=== PATIENT | female | born 1965 | race Hispanic/Latino ===

== ENCOUNTER 2020-01-27 15:06 | Inpatient (IN) | payer OTHER ==
[~2020-01-27] VITALS: Ht 154.9 cm; Wt 65.8 kg
[2020-01-27 15:59] LABS: BASOPHILS % (AUTO) 0.3 % (0.0-5.0); EOSINOPHILS % (AUTO) 4.3 % (0.0-8.0); HEMATOCRIT 36.8 % (36-48); LYMPHOCYTES % (AUTO) 10.6 % (21.0-51.0); MEAN CORPUSCULAR HEMOGLOBIN 28.5 pg (27.0-33.0); MEAN CORPUSCULAR HGB CONC 32.1 g/dL (32.0-36.0); MEAN CORPUSCULAR VOLUME 88.9 fL (79-99); NEUTROPHILS % (AUTO) 79.3 % (40.0-77.0); PLATELET COUNT (AUTO) 549 K/uL (130-400); RED BLOOD CELL COUNT(AUTO) 4.14 MIL/uL (4.00-5.50); RED CELL DISTRIBUTION WIDTH 13.3 % (11.0-15.5); WHITE BLOOD COUNT (AUTO) 28.1 K/uL (4.8-10.8)
[2020-01-27] MEDS ORDERED: AZITHROMYCIN 250 MG TABLET PO ONE (16:17)
[2020-01-27] MEDS ORDERED: CEFTRIAXONE SODIUM 1 GM ONE (16:17)
[2020-01-27 16:22] LABS: INR 1.02 (0.85-1.15); PARTIAL THROMBOPLASTIN TIME 32.7 SEC (26.3-35.5)
[2020-01-27] MEDS ORDERED: IOHEXOL 350 MG/ML 100ML INFUS..BTL IV ONE (18:11)
[2020-01-27 20:15] LABS: ALANINE AMINOTRANSFERASE 13 U/L (12-78); ALBUMIN 2.9 g/dL (3.5-5.0); ASPARTATE AMINOTRANSFERASE 16 U/L (10-37); BILIRUBIN,TOTAL 0.3 mg/dL (0.2-1.0); CARBON DIOXIDE 26 mmol/L (21-32); CHLORIDE 96 mmol/L (101-111); CREATINE KINASE, TOTAL 25 U/L (21-232); CREATININE 0.6 mg/dL (0.5-1.5); GLOMERULAR FILTR. RATE CALC 110 mL/min (>60); GLUCOSE,RANDOM 165 mg/dL (70-105); MYOGLOBIN 19 ng/mL (10-92); POTASSIUM 3.3 mmol/L (3.5-5.1); SODIUM SERUM 135 mmol/L (136-145); TOTAL PROTEIN, SERUM 9.4 g/dL (6.0-8.3); TROPONIN I < 0.04 ng/mL (0.00-0.06); UREA NITROGEN, BLOOD 19 mg/dL (7-18)
[2020-01-27] MEDS ORDERED: LIDOCAINE HCL 2% VISCOUS 30 ML, MAG HYDROX/AL HYDROX/SIMETH 30 ML, BELLADONNA-PHENOBARB... PO PRN ×3 (20:15)
[2020-01-27] MEDS ORDERED: LACTULOSE 20 GM/30 ML UDCUP PO PRN (20:15)
[2020-01-27] MEDS: CEFEPIME HCL 2 GM VIAL IVP SCH (20:15)
[2020-01-27] MEDS ORDERED: MAG HYDROX/AL HYDROX/SIMETH ES 30 ML SUSP UDCUP PO PRN (20:15)
[2020-01-27] MEDS ORDERED: ERGOCALCIFEROL (VITAMIN D2) 50,000 UNIT CAPSULE PO ONE (20:15)
[2020-01-27] MEDS ORDERED: DiphenhydrAMINE HCL 50 MG/ML VIAL IV PRN (20:15)
[2020-01-27] MEDS ORDERED: ACETAMINOPHEN 325 MG TAB PO PRN ×2 (20:15)
[2020-01-27] MEDS ORDERED: HYDRALAZINE HCL 20 MG/ML VIAL IV PRN (20:15)
[2020-01-27] MEDS ORDERED: NITROGLYCERIN 0.4 MG SL TAB SL PRN (20:15)
[2020-01-27] MEDS ORDERED: ZOLPIDEM TARTRATE 5 MG TAB PO PRN (20:15)
[2020-01-27] MEDS ORDERED: DIPHENHYDRAMINE HCL 25 MG CAPSULE PO PRN (20:15)
[2020-01-27] MEDS ORDERED: VANCOMYCIN PROTOCOL PER PHARMACY IV PRN (20:15)
[2020-01-27] MEDS ORDERED: MAG HYDROX/AL HYDROX/SIMETH 30 ML, LIDOCAINE HCL 2% VISCOUS 30 ML, DIPHENHYDRAMINE HCL ... PO PRN ×3 (20:15)
[2020-01-27 20:38] LABS: APPEARANCE,URINE SL CLOUDY (CLEAR); BILIRUBIN,URINE MODERATE (NEGATIVE); COLOR,URINE YELLOW (YELLOW); GLUCOSE, URINE (UA) NEGATIVE (NEGATIVE); KETONES,URINE >=80 mg/dL (NEGATIVE); LEUKOCYTE ESTERASE ,URINE NEGATIVE (NEGATIVE); NITRATE,URINE NEGATIVE (NEGATIVE); OCCULT BLOOD,URINE NEGATIVE (NEGATIVE); PH,URINE 5.5 (5.0-8.0); PROTEIN,URINE 30 mg/dL (NEGATIVE)
[2020-01-27 20:40] LABS: BACTERIA,URINE Few /HPF (None Seen); MUCUS,URINE Moderate LPF (None Seen); RBC,URINE 0-1 /HPF (0-1); SQUAMOUS EPITHELIAL CELL,UR Few /HPF (0-2)
[2020-01-27] MEDS: FAMOTIDINE/PF 20 MG/2 ML VIAL IV SCH (21:00)
[2020-01-27] MEDS: VANCOMYCIN 1GM+NS 250ML 250 ML IV SCH (21:00)
[2020-01-27] MEDS ORDERED: DiphenhydrAMINE HCL 25 MG/10 ML ELIXIR UDCUP ONE (22:07)
[2020-01-27] MEDS ORDERED: MAG HYDROX/AL HYDROX/SIMETH ES 30 ML SUSP UDCUP ONE (22:07)
[2020-01-27] MEDS ORDERED: LIDOCAINE HCL 2% VISCOUS 15 ML UDCUP ONE (22:07)
[2020-01-27] MEDS ORDERED: FAMOTIDINE/PF 20 MG/2 ML VIAL IV ONE (22:08)
[2020-01-27] MEDS ORDERED: CEFEPIME HCL 2 GM VIAL ONE (22:08)
[2020-01-27] MEDS ORDERED: ERGOCALCIFEROL (VITAMIN D2) 50,000 UNIT CAPSULE ONE (23:50)
[2020-01-28 02:05] VITALS: BP 114/69
[2020-01-28] MEDS ORDERED: AEC81 PO (02:55)
[2020-01-28] MEDS ORDERED: METF500S7 PO (02:55)
[2020-01-28] MEDS ORDERED: AMLO25PO MC (02:55)
[2020-01-28 04:00] VITALS: BP 111/67
[2020-01-28 05:50] LABS: BASOPHILS % (AUTO) 0.4 % (0.0-5.0); EOSINOPHILS % (AUTO) 4.2 % (0.0-8.0); HEMATOCRIT 35.6 % (36-48); LYMPHOCYTES % (AUTO) 9.7 % (21.0-51.0); MEAN CORPUSCULAR HGB CONC 32.3 g/dL (32.0-36.0); MEAN CORPUSCULAR VOLUME 89.7 fL (79-99); MONOCYTES % (AUTO) 3.5 % (3.0-13.0); PLATELET COUNT (AUTO) 505 K/uL (130-400); RED BLOOD CELL COUNT(AUTO) 3.97 MIL/uL (4.00-5.50); RED CELL DISTRIBUTION WIDTH 13.3 % (11.0-15.5)
[2020-01-28] MEDS: IPRATROPIUM 0.5 MG/2.5 ML INH IH SCH ×3 (06:00→12:00)
[2020-01-28] MEDS: ALBUTEROL SULFATE 0.083% 2.5 MG/3 ML INH IH SCH ×3 (06:00→12:00)
[2020-01-28 06:02] LABS: ALBUMIN 2.7 g/dL (3.5-5.0); BILIRUBIN,TOTAL 0.2 mg/dL (0.2-1.0); CREATININE 0.5 mg/dL (0.5-1.5); MAGNESIUM 1.9 mg/dL (1.80-2.40); PHOSPHORUS 3.7 mg/dL (2.5-4.9); POTASSIUM 3.4 mmol/L (3.5-5.1); TOTAL PROTEIN, SERUM 8.8 g/dL (6.0-8.3)
[2020-01-28 06:08] LABS: PLATELET MORPHOLOGY PLT CLUMPS PRESENT
[2020-01-28 08:04] VITALS: BP 105/68
[2020-01-28] MEDS: ZINC SULFATE 220 CAPSULE PO SCH (09:07)
[2020-01-28] MEDS: BENZONATATE 100 MG CAPSULE PO PRN (09:08)
[2020-01-28] MEDS: FAMOTIDINE/PF 20 MG/2 ML VIAL IV SCH ×2 (09:08→21:00)
[2020-01-28] MEDS: ONDANSETRON HCL 4 MG/2 ML VIAL IV PRN (09:08)
[2020-01-28] MEDS: ASCORBIC ACID 500 MG TAB PO SCH (09:08)
[2020-01-28] MEDS: ENOXAPARIN SODIUM 40 MG/0.4 ML SYRINGE SQ SCH (09:09)
[2020-01-28] MEDS: GUAIFENESIN-DM 200/20 MG 10 ML PO PRN (09:09)
[2020-01-28] MEDS: CEFEPIME HCL 2 GM VIAL IVP SCH ×2 (09:10→20:58)
[2020-01-28] MEDS: METOPROLOL TARTRATE 25 MG TAB PO SCH ×2 (10:32→12:19)
[2020-01-28] MEDS: VANCOMYCIN 1GM+NS 250ML 250 ML IV SCH ×2 (10:33→20:59)
--- NOTE | 2020-01-28 11:15 | NUR ---
DYSPHAGIA EVAL COMPLETED. +S/S OF ASPIRATION. RECOMMEND NPO, LONG-TERM ALTERNATE MEANS OF NUTRITION/HYDRATION VS IV FLUIDS. DIET RECOMMENDATION IS CONTINGENT ON MASS BIOPSY AND COURSE OF TREATMENT. CANVAS SHOP LABORER WILL CONTINUE TO FOLLOW Pt. Addendum: 01/28/20 at 1408 by MARCIO MEDRANO, SPT ST Amended: Links added.
[2020-01-28 12:10] VITALS: BP 111/70
[2020-01-28] MEDS ORDERED: POTASSIUM CHLORIDE 20 MEQ/100 ML BAG IV SCH (14:45)
[2020-01-28] MEDS ORDERED: METOPROLOL TARTRATE 1 MG/ML 5ML VIAL IV PRN (14:45)
--- NOTE | 2020-01-28 14:49 | NUR ---
verified with dr. delgado if we need to proceed with the consult of dr. duvall the thoracic surgeon, he instructed to hold it for now.
--- NOTE | 2020-01-28 15:32 | NUR ---
DC PLAN CALLED PATIENT ROOM NO ANSWER. CALLED DAUGHTER ON FACE SHEET OTONIEL VANDANA. PATIENT INDEPENDENT ABLE TO PERFORM ADL'S. PATIENT HAS NO SERVICES OR DME'S. FEELS SAFE TO RETURN HOME. Addendum: 01/28/20 at 1533 by ERMIAS HAINES RN CM Amended: Links added.
[2020-01-28] MEDS ORDERED: SODIUM CHLORIDE 0.9% 1000ML 1,000 ML IV ONE (15:53)
[2020-01-28] MEDS ORDERED: LIDOCAINE HCL-MPF 1% 2ML VIAL IV SCH (16:00)
[2020-01-28] MEDS: SODIUM CHLORIDE 0.9% 1000ML 1,000 ML IV SCH (16:00)
[2020-01-28 16:41] VITALS: BP 110/70
[2020-01-28] MEDS: METOPROLOL TARTRATE 1 MG/ML 5ML VIAL IV SCH (18:25)
[2020-01-28] MEDS ORDERED: IOHEXOL-350 75 ML VIAL IV ONE (18:46)
[2020-01-28 19:00] VITALS: BP 106/76
[2020-01-28] MEDS: INSULIN HUMULIN R 100 UNIT/ML 3ML SQ SCH (21:00)
[2020-01-29] VITALS: BP 107/63
[2020-01-29] MEDS: METOPROLOL TARTRATE 1 MG/ML 5ML VIAL IV SCH ×5 (00:23→23:59)
[2020-01-29] MEDS: SODIUM CHLORIDE 0.9% 1000ML 1,000 ML IV SCH ×2 (02:00→22:00)
[2020-01-29 03:00] VITALS: BP 106/67
--- NOTE | 2020-01-29 03:00 | NUR ---
[facility] lab called to report that patient's PCR is negative, charge nurse Cindy marrero aware and no beds available at this time Addendum: 01/29/20 at 0622 by МАРИНА RIOS RN RN did not speakl to charge nurse, spoke to Senior Clinical Data Analyst, Magali
[2020-01-29 05:25] LABS: BASOPHILS % (AUTO) 0.3 % (0.0-5.0); EOSINOPHILS % (AUTO) 2.5 % (0.0-8.0); HEMATOCRIT 35.7 % (36-48); LYMPHOCYTES % (AUTO) 9.8 % (21.0-51.0); MEAN CORPUSCULAR HGB CONC 30.5 g/dL (32.0-36.0); MEAN CORPUSCULAR VOLUME 91.8 fL (79-99); MONOCYTES % (AUTO) 3.6 % (3.0-13.0); NEUTROPHILS % (AUTO) 82.6 % (40.0-77.0); PLATELET COUNT (AUTO) 480 K/uL (130-400); RED BLOOD CELL COUNT(AUTO) 3.89 MIL/uL (4.00-5.50); RED CELL DISTRIBUTION WIDTH 13.7 % (11.0-15.5)
[2020-01-29 05:44] LABS: ALBUMIN 2.3 g/dL (3.5-5.0); BILIRUBIN,TOTAL 0.3 mg/dL (0.2-1.0); CREATININE 0.5 mg/dL (0.5-1.5); PHOSPHORUS 2.6 mg/dL (2.5-4.9); POTASSIUM 3.7 mmol/L (3.5-5.1)
[2020-01-29 05:48] LABS: HEMOGLOBIN A1C 11.8 % (4.0-6.0)
[2020-01-29] MEDS: ALBUTEROL SULFATE 0.083% 2.5 MG/3 ML INH IH SCH ×3 (05:53→23:11)
[2020-01-29] MEDS: IPRATROPIUM 0.5 MG/2.5 ML INH IH SCH ×2 (05:53)
[2020-01-29 05:54] LABS: MAGNESIUM 1.7 mg/dL (1.80-2.40)
[2020-01-29] MEDS: INSULIN HUMULIN R 100 UNIT/ML 3ML SQ SCH ×4 (06:37→21:00)
[2020-01-29 08:00] VITALS: BP 107/70
[2020-01-29] MEDS: ENOXAPARIN SODIUM 40 MG/0.4 ML SYRINGE SQ SCH (08:29)
[2020-01-29] MEDS: ZINC SULFATE 220 CAPSULE PO SCH (08:29)
[2020-01-29] MEDS: ASCORBIC ACID 500 MG TAB PO SCH (08:29)
--- NOTE | 2020-01-29 09:00 | NUR ---
RESTING IN BED IN RIGHT SIDE-LYING POSITION, RESP.'S EVEN AND UNLABORED. PARTIAL NRB IN PLACE. STATES BREATHING BETTER TODAY. DENIES ANY CURRENT PAIN, DENIES ANY SOB. COMPLETE ASSESSMENT DONE. CALL LIGHT WITHIN REACH, VERBALIZED ABILITY TO USE. BED LOW, SIDE RAILS UP.
[2020-01-29] MEDS: CEFEPIME HCL 2 GM VIAL IVP SCH ×2 (09:04→21:10)
[2020-01-29] MEDS: VANCOMYCIN 1GM+NS 250ML 250 ML IV SCH (09:04)
[2020-01-29] MEDS: FAMOTIDINE/PF 20 MG/2 ML VIAL IV SCH ×2 (09:04→21:10)
--- NOTE | 2020-01-29 09:59 | NUR ---
TO CT SCAN VIA BED ACCOMPANIED BY MAXWELL, REMOTE SENSING ENGINEER; PARTIAL NRB MASK IN PLACE.
--- NOTE | 2020-01-29 10:03 | NUR ---
REPORT TO Hunter BEEBE RN.
[2020-01-29 12:07] VITALS: BP 143/64
--- NOTE | 2020-01-29 13:55 | NUR ---
FOLLOW UP COMPLETED. Pt CURRENTLY NPO. TOPOGRAPHIC COMPUTATOR WILL CONTINUE TO FOLLOW Pt PENDING RESULTS AND PLAN OF CARE FOR ESOPHAGEAL MASS. Addendum: 01/29/20 at 1406 by MARCIO MEDRANO, [facility] ST Amended: Links added.
[2020-01-29] MEDS ORDERED: ALBUTEROL INHALER 90MCG/INH IH SCH (14:00)
--- NOTE | 2020-01-29 15:23 | NUR ---
RE: EVALUATION FOR BIOPSY OF MASS OF LIVER, RETROPERITONEAL OR ESOPHAGEAL MASS DR NOAH HALL CALLED TO SPEAK WITH DR Fabian DAVISON REGARDING LEAST INVASIVE BIOPSY. DR Fabian DAVISON NOTIFIED OF REQUEST AND REVIEWED IMAGES. DR Fabian DAVISON RECOMMENDED GI CONSULT FOR ESOPHAGEAL BIOPSY. DR NOAH HALL STATED GI DECLINED BIOPSY DUE TO PATIENT'S HIGH AGUS OF INTUBATION FOR PROCEDURE. PROCEDURE RESCHEDULED FOR 02/02/20 FOR POSSIBLE ESOPHAGEAL MASS BX AND HOLD LOVENOX FOR 48HRS Snow YUSUF RN NOTIFIED OF PROCEDURE OUTCOME.
[2020-01-29 16:39] VITALS: BP 97/75
--- NOTE | 2020-01-29 18:15 | NUR ---
lopresser not given pt b/p sys below 100
[2020-01-29 20:16] VITALS: BP 112/66
[2020-01-29] MEDS ORDERED: COMPOUND IV REFRIGERATED 1 EACH IVSOLN MISC PRN (21:00)
[2020-01-29] MEDS: VANCOMYCIN 1.25 GM in SODIUM CHLORIDE 0.9% 250 ML IV SCH (23:02)
[2020-01-29] MEDS: ACETYLCYSTEINE 20% 200MG/ML 4ML VIAL IH SCH (23:11)
[2020-01-30 00:01] VITALS: BP 117/65
[2020-01-30 04:06] VITALS: BP 110/64
[2020-01-30 05:16] LABS: BASOPHILS % (AUTO) 0.3 % (0.0-5.0); EOSINOPHILS % (AUTO) 3.5 % (0.0-8.0); HEMATOCRIT 35.2 % (36-48); LYMPHOCYTES % (AUTO) 10.2 % (21.0-51.0); MEAN CORPUSCULAR HEMOGLOBIN 28.5 pg (27.0-33.0); MEAN CORPUSCULAR HGB CONC 30.4 g/dL (32.0-36.0); MEAN CORPUSCULAR VOLUME 93.6 fL (79-99); MONOCYTES % (AUTO) 3.7 % (3.0-13.0); NEUTROPHILS % (AUTO) 81.2 % (40.0-77.0); PLATELET COUNT (AUTO) 508 K/uL (130-400); RED BLOOD CELL COUNT(AUTO) 3.76 MIL/uL (4.00-5.50); RED CELL DISTRIBUTION WIDTH 13.7 % (11.0-15.5)
[2020-01-30 05:39] LABS: ALBUMIN 2.1 g/dL (3.5-5.0); BILIRUBIN,TOTAL 0.3 mg/dL (0.2-1.0); CREATININE 0.5 mg/dL (0.5-1.5); MAGNESIUM 1.6 mg/dL (1.80-2.40); PHOSPHORUS 2.6 mg/dL (2.5-4.9); POTASSIUM 3.6 mmol/L (3.5-5.1)
[2020-01-30 05:42] LABS: PLATELET MORPHOLOGY LARGE PLTS PRESENT
[2020-01-30] MEDS: ACETYLCYSTEINE 20% 200MG/ML 4ML VIAL IH SCH ×4 (06:08→21:48)
[2020-01-30] MEDS: ALBUTEROL SULFATE 0.083% 2.5 MG/3 ML INH IH SCH ×4 (06:08→21:47)
[2020-01-30] MEDS: METOPROLOL TARTRATE 1 MG/ML 5ML VIAL IV SCH ×4 (06:14→21:00)
[2020-01-30] MEDS: INSULIN HUMULIN R 100 UNIT/ML 3ML SQ SCH ×4 (06:22→20:58)
[2020-01-30 08:00] VITALS: BP 100/56
[2020-01-30] MEDS: VANCOMYCIN 1.25 GM in SODIUM CHLORIDE 0.9% 250 ML IV SCH ×2 (09:00→20:58)
[2020-01-30] MEDS: ZINC SULFATE 220 CAPSULE PO SCH (09:00)
[2020-01-30] MEDS: ASCORBIC ACID 500 MG TAB PO SCH (09:00)
[2020-01-30] MEDS: MORPHINE SULFATE 2 MG/ML 1ML SYG IVP PRN (10:34)
[2020-01-30] MEDS: ENOXAPARIN SODIUM 40 MG/0.4 ML SYRINGE SQ SCH (10:35)
[2020-01-30] MEDS: CEFEPIME HCL 2 GM VIAL IVP SCH ×2 (10:35→20:56)
[2020-01-30] MEDS: FAMOTIDINE/PF 20 MG/2 ML VIAL IV SCH ×2 (10:35→20:58)
[2020-01-30 11:34] VITALS: BP 140/52
[2020-01-30 16:00] VITALS: BP 110/63
[2020-01-30] MEDS: SODIUM CHLORIDE 0.9% 1000ML 1,000 ML IV SCH ×2 (18:36→19:37)
[2020-01-30 19:30] VITALS: BP 109/71
[2020-01-31 00:17] VITALS: BP 104/61
[2020-01-31] MEDS: SODIUM CHLORIDE 0.9% 1000ML 1,000 ML IV SCH ×2 (03:16→19:03)
[2020-01-31] MEDS: METOPROLOL TARTRATE 1 MG/ML 5ML VIAL IV SCH ×4 (04:59→23:54)
[2020-01-31] MEDS: INSULIN HUMULIN R 100 UNIT/ML 3ML SQ SCH ×4 (06:07→20:33)
[2020-01-31 06:19] VITALS: BP 114/69
[2020-01-31] MEDS: ACETYLCYSTEINE 20% 200MG/ML 4ML VIAL IH SCH ×3 (06:30→21:17)
[2020-01-31] MEDS: ZINC SULFATE 220 CAPSULE PO SCH (08:28)
[2020-01-31] MEDS: ENOXAPARIN SODIUM 40 MG/0.4 ML SYRINGE SQ SCH ×2 (08:28→09:00)
[2020-01-31] MEDS: FAMOTIDINE/PF 20 MG/2 ML VIAL IV SCH ×2 (08:28→21:17)
[2020-01-31] MEDS: VANCOMYCIN 1.25 GM in SODIUM CHLORIDE 0.9% 250 ML IV SCH ×2 (08:28→21:17)
[2020-01-31] MEDS: CEFEPIME HCL 2 GM VIAL IVP SCH ×2 (08:28→21:17)
[2020-01-31] MEDS: ASCORBIC ACID 500 MG TAB PO SCH (08:28)
[2020-01-31 10:19] LABS: BASOPHILS % (AUTO) 0.3 % (0.0-5.0); EOSINOPHILS % (AUTO) 3.5 % (0.0-8.0); HEMATOCRIT 33.4 % (36-48); LYMPHOCYTES % (AUTO) 7.5 % (21.0-51.0); MEAN CORPUSCULAR HEMOGLOBIN 28.9 pg (27.0-33.0); MEAN CORPUSCULAR HGB CONC 31.7 g/dL (32.0-36.0); MONOCYTES % (AUTO) 3.3 % (3.0-13.0); NEUTROPHILS % (AUTO) 84.5 % (40.0-77.0); PLATELET COUNT (AUTO) 463 K/uL (130-400); RED BLOOD CELL COUNT(AUTO) 3.67 MIL/uL (4.00-5.50); RED CELL DISTRIBUTION WIDTH 13.4 % (11.0-15.5); WHITE BLOOD COUNT (AUTO) 23.6 K/uL (4.8-10.8)
[2020-01-31 10:35] LABS: ALBUMIN 2.2 g/dL (3.5-5.0); ASPARTATE AMINOTRANSFERASE 15 U/L (10-37); BILIRUBIN,TOTAL 0.4 mg/dL (0.2-1.0); CARBON DIOXIDE 25 mmol/L (21-32); CHLORIDE 102 mmol/L (101-111); CREATININE 0.5 mg/dL (0.5-1.5); GLOMERULAR FILTR. RATE CALC 136 mL/min (>60); GLUCOSE,RANDOM 134 mg/dL (70-105); SODIUM SERUM 137 mmol/L (136-145); TOTAL PROTEIN, SERUM 7.7 g/dL (6.0-8.3); UREA NITROGEN, BLOOD 5 mg/dL (7-18)
[2020-01-31 10:36] LABS: ALANINE AMINOTRANSFERASE < 6 U/L (12-78)
[2020-01-31 11:46] VITALS: BP 125/76
[2020-01-31] MEDS: ALBUTEROL SULFATE 0.083% 2.5 MG/3 ML INH IH SCH ×2 (14:22→21:27)
[2020-01-31] MEDS: POTASSIUM CHLORIDE 20 MEQ ERTAB PO PRN ×2 (15:29→15:30)
[2020-01-31 16:00] VITALS: BP 113/67
[2020-01-31 20:28] VITALS: BP 105/64
[2020-01-31 23:36] VITALS: BP 107/61
[2020-02-01 04:24] VITALS: BP 93/57
[2020-02-01] MEDS: METOPROLOL TARTRATE 1 MG/ML 5ML VIAL IV SCH ×3 (04:31→17:49)
[2020-02-01 05:17] LABS: BASOPHILS % (AUTO) 0.3 % (0.0-5.0); EOSINOPHILS % (AUTO) 3.3 % (0.0-8.0); HEMATOCRIT 35.1 % (36-48); LYMPHOCYTES % (AUTO) 10.1 % (21.0-51.0); MEAN CORPUSCULAR HEMOGLOBIN 28.7 pg (27.0-33.0); MEAN CORPUSCULAR HGB CONC 31.6 g/dL (32.0-36.0); MEAN CORPUSCULAR VOLUME 90.7 fL (79-99); NEUTROPHILS % (AUTO) 81.4 % (40.0-77.0); PLATELET COUNT (AUTO) 511 K/uL (130-400); RED BLOOD CELL COUNT(AUTO) 3.87 MIL/uL (4.00-5.50); RED CELL DISTRIBUTION WIDTH 13.7 % (11.0-15.5); WHITE BLOOD COUNT (AUTO) 24.5 K/uL (4.8-10.8)
[2020-02-01 05:36] LABS: ALBUMIN 2.2 g/dL (3.5-5.0); BILIRUBIN,TOTAL 0.3 mg/dL (0.2-1.0); CREATININE 0.5 mg/dL (0.5-1.5); TOTAL PROTEIN, SERUM 8.2 g/dL (6.0-8.3)
[2020-02-01 05:56] LABS: POTASSIUM 2.9 mmol/L (3.5-5.1)
[2020-02-01] MEDS: ALBUTEROL SULFATE 0.083% 2.5 MG/3 ML INH IH SCH ×3 (06:26→22:11)
[2020-02-01] MEDS: ACETYLCYSTEINE 20% 200MG/ML 4ML VIAL IH SCH ×3 (06:27→22:12)
[2020-02-01] MEDS: INSULIN HUMULIN R 100 UNIT/ML 3ML SQ SCH ×4 (06:34→20:52)
[2020-02-01] MEDS: ENOXAPARIN SODIUM 40 MG/0.4 ML SYRINGE SQ SCH (09:00)
[2020-02-01] MEDS: CEFEPIME HCL 2 GM VIAL IVP SCH ×2 (09:15→20:51)
[2020-02-01] MEDS: ZINC SULFATE 220 CAPSULE PO SCH (09:16)
[2020-02-01] MEDS: POTASSIUM CHLORIDE 20 MEQ ERTAB PO PRN ×2 (09:16→21:30)
[2020-02-01] MEDS: ASCORBIC ACID 500 MG TAB PO SCH (09:16)
[2020-02-01] MEDS: FAMOTIDINE/PF 20 MG/2 ML VIAL IV SCH ×2 (09:16→20:51)
[2020-02-01 13:37] VITALS: BP 105/59
[2020-02-01] MEDS: VANCOMYCIN 1.25 GM in SODIUM CHLORIDE 0.9% 250 ML IV SCH ×2 (15:06→20:51)
[2020-02-01] MEDS: SODIUM CHLORIDE 0.9% 1000ML 1,000 ML IV SCH (15:07)
[2020-02-01 18:10] VITALS: BP 100/67
[2020-02-01 19:43] VITALS: BP 102/70
[2020-02-01 23:49] VITALS: BP 102/58
[2020-02-02] VITALS (7 sets, daily range): BP systolic 84–144; BP diastolic 54–72
[2020-02-02] MEDS: METOPROLOL TARTRATE 1 MG/ML 5ML VIAL IV SCH ×5 (00:22→23:30)
[2020-02-02] MEDS: POTASSIUM CHLORIDE 20 MEQ ERTAB PO PRN (03:48)
[2020-02-02 06:03] LABS: BASOPHILS % (AUTO) 0.4 % (0.0-5.0); EOSINOPHILS % (AUTO) 4.8 % (0.0-8.0); HEMATOCRIT 35.3 % (36-48); LYMPHOCYTES % (AUTO) 9.3 % (21.0-51.0); MEAN CORPUSCULAR HEMOGLOBIN 28.5 pg (27.0-33.0); MEAN CORPUSCULAR HGB CONC 31.2 g/dL (32.0-36.0); MEAN CORPUSCULAR VOLUME 91.5 fL (79-99); MONOCYTES % (AUTO) 3.6 % (3.0-13.0); NEUTROPHILS % (AUTO) 80.8 % (40.0-77.0); PLATELET COUNT (AUTO) 541 K/uL (130-400); RED BLOOD CELL COUNT(AUTO) 3.86 MIL/uL (4.00-5.50); RED CELL DISTRIBUTION WIDTH 14.1 % (11.0-15.5); WHITE BLOOD COUNT (AUTO) 25.2 K/uL (4.8-10.8)
[2020-02-02] MEDS: ALBUTEROL SULFATE 0.083% 2.5 MG/3 ML INH IH SCH ×3 (06:13→22:18)
[2020-02-02] MEDS: ACETYLCYSTEINE 20% 200MG/ML 4ML VIAL IH SCH ×3 (06:13→22:18)
[2020-02-02] MEDS: INSULIN HUMULIN R 100 UNIT/ML 3ML SQ SCH ×4 (06:35→21:00)
[2020-02-02 06:39] LABS: ALBUMIN 2.2 g/dL (3.5-5.0); BILIRUBIN,TOTAL 0.2 mg/dL (0.2-1.0); CREATININE 0.7 mg/dL (0.5-1.5); POTASSIUM 3.4 mmol/L (3.5-5.1); TOTAL PROTEIN, SERUM 8.1 g/dL (6.0-8.3)
[2020-02-02] MEDS: CEFEPIME HCL 2 GM VIAL IVP SCH ×2 (07:26→21:00)
[2020-02-02] MEDS: FAMOTIDINE/PF 20 MG/2 ML VIAL IV SCH ×2 (07:26→21:00)
--- NOTE | 2020-02-02 08:00 | NUR ---
ASSESSMENT PT IS AAOX3 DENIES CP DENIES SOB DENIES NV NO COMPLAINTS AT THIS TIME, RESTING IN BED. CALL LIGHT WITHIN REACH. NPO STATUS FOR LIVER BIOPSY.
[2020-02-02] MEDS: ASCORBIC ACID 500 MG TAB PO SCH (09:00)
[2020-02-02] MEDS: ENOXAPARIN SODIUM 40 MG/0.4 ML SYRINGE SQ SCH (09:00)
[2020-02-02] MEDS: ZINC SULFATE 220 CAPSULE PO SCH (09:00)
[2020-02-02] MEDS: VANCOMYCIN 1.25 GM in SODIUM CHLORIDE 0.9% 250 ML IV SCH ×2 (09:29→21:03)
--- NOTE | 2020-02-02 10:17 | NUR ---
MD BHARTI PEDRAZA AND Christo CROWELL, ORDERS RECEIVED. Addendum: 02/02/20 at 1018 by QUENTIN ZAMUDIO RN RN THIS NOTE ENTERED IN ERROR
[2020-02-02] MEDS: SODIUM CHLORIDE 0.9% 1000ML 1,000 ML IV SCH (10:41)
--- NOTE | 2020-02-02 16:00 | NUR ---
RE: LIVER BIOPSY PATIENT SCHEDULED FOR LIVER LESION BIOPSY. U/S OF LIVER DONE AND IMAGES REVIEWED BY DR Valdez GARCIA. 2.4CM CYST SEEN WITH NO LESION TO BIOPSY. PROCEDURE CANCELLED. PROCEDURE OUTCOME REPORTED TO Christine ZAMUDIO RN AND PATIENT TRANSPORTED TO [facility] VIA BED.
[2020-02-03 03:09] VITALS: BP 104/64
[2020-02-03] MEDS: METOPROLOL TARTRATE 1 MG/ML 5ML VIAL IV SCH ×3 (05:30→23:30)
[2020-02-03 06:25] LABS: BASOPHILS % (AUTO) 0.3 % (0.0-5.0); HEMATOCRIT 30.9 % (36-48); LYMPHOCYTES % (AUTO) 8.8 % (21.0-51.0); MEAN CORPUSCULAR HEMOGLOBIN 28.9 pg (27.0-33.0); MEAN CORPUSCULAR HGB CONC 31.4 g/dL (32.0-36.0); MONOCYTES % (AUTO) 4.5 % (3.0-13.0); NEUTROPHILS % (AUTO) 80.2 % (40.0-77.0); PLATELET COUNT (AUTO) 455 K/uL (130-400); RED BLOOD CELL COUNT(AUTO) 3.36 MIL/uL (4.00-5.50); RED CELL DISTRIBUTION WIDTH 14.1 % (11.0-15.5); WHITE BLOOD COUNT (AUTO) 24.2 K/uL (4.8-10.8)
[2020-02-03] MEDS: ALBUTEROL SULFATE 0.083% 2.5 MG/3 ML INH IH SCH ×3 (06:37→22:11)
[2020-02-03] MEDS: ACETYLCYSTEINE 20% 200MG/ML 4ML VIAL IH SCH ×3 (06:38→22:11)
[2020-02-03 06:45] LABS: ALBUMIN 2.1 g/dL (3.5-5.0); BILIRUBIN,TOTAL 0.3 mg/dL (0.2-1.0); CREATININE 0.5 mg/dL (0.5-1.5); TOTAL PROTEIN, SERUM 7.1 g/dL (6.0-8.3)
[2020-02-03] MEDS: INSULIN HUMULIN R 100 UNIT/ML 3ML SQ SCH ×4 (07:23→21:00)
[2020-02-03 08:43] VITALS: BP 106/71
[2020-02-03] MEDS: ENOXAPARIN SODIUM 40 MG/0.4 ML SYRINGE SQ SCH (09:00)
[2020-02-03] MEDS: ASCORBIC ACID 500 MG TAB PO SCH (09:00)
[2020-02-03] MEDS: ZINC SULFATE 220 CAPSULE PO SCH (09:00)
[2020-02-03] MEDS: FAMOTIDINE/PF 20 MG/2 ML VIAL IV SCH ×2 (10:50→21:00)
[2020-02-03] MEDS: CEFEPIME HCL 2 GM VIAL IVP SCH (10:50)
[2020-02-03] MEDS: SODIUM CHLORIDE 0.9% 1000ML 1,000 ML IV SCH ×2 (11:09→11:18)
[2020-02-03] MEDS: POTASSIUM CHLORIDE 10% ELIXIR 20 MEQ/15 ML UDCUP PO SCH ×2 (11:09→13:27)
[2020-02-03] MEDS ORDERED: PHARMACY COMMUNICATION MISC SCH (11:15)
--- NOTE | 2020-02-03 11:30 | NUR ---
PT IN NAD THIS AM. LEFT FA IV REMOVED DUE TO REDNESS AND TENDERNESS IN AREA. PT C.O PAIN, VANCO PREVIOUSLY INFUSED AT THIS SITE. WILL COMMUNICATE FOR EXTRAVASATION PROTOCOL??
--- NOTE | 2020-02-03 12:00 | NUR ---
FOLLOW UP COMPLETED. PLEASE CONSIDER MBSS AT THIS TIME. Pt UPGRADED TO CLEAR LIQUID DIET AT THIS TIME. THERAPEUTIC TRIALS OF THIN LIQUIDS PROVIDED WITH OBVIOUS +S/S OF ASPIRATION WITH THIN LIQUIDS. PLEASE CONSIDER MBSS AT THIS TIME OR S/P INTERVENTION TO NECK MASS. TREER WILL CONTINUE TO FOLLOW Pt. TREER COORDINATED WITH NURSE RONQUILLO. Addendum: 02/03/20 at 1325 by MARCIO MEDRANO [facility] ST Amended: Links added.
[2020-02-03 12:20] VITALS: BP 136/73
[2020-02-03] MEDS ORDERED: COMPOUND IV REFRIGERATED 1 EACH IVSOLN MISC PRN (12:45)
[2020-02-03] MEDS ORDERED: LIDOCAINE HCL-MPF 1% 2ML VIAL IJ PRN (14:30)
[2020-02-03] MEDS ORDERED: POTASSIUM CHLORIDE 10% ELIXIR 20 MEQ/15 ML UDCUP PO PRN (14:30)
[2020-02-03] MEDS ORDERED: POTASSIUM CHLORIDE 20MEQ/100ML 100 ML IV PRN (14:30)
[2020-02-03] MEDS ORDERED: POTASSIUM CHLORIDE 20 MEQ ERTAB PO PRN (14:30)
[2020-02-03] MEDS: ZOSYN 3.375GM+NS 50ML 50 ML IV SCH ×2 (15:08→23:45)
--- NOTE | 2020-02-03 15:10 | NUR ---
SPOKE WITH RADIOLOGY. FOR THE SMALL BOWEL OBSTRUCTION SERIES, THEY ARE GO GIVE HALF A DOSE OF CONTRAST FOR POSSIBLE ASPIRATION
[2020-02-03 16:53] VITALS: BP 104/65
--- NOTE | 2020-02-03 17:12 | NUR ---
RD NOTIFICATION - POSSIBLE TPN Pt admitted with Obstructive PNA w/Esophageal Mass. Pt with +S/S aspiration. Possible TPN pending GI evaluation. Pt with Nausea/Vomiting X2 mos. Significant weight loss of 37 pounds. Monitored labs: K 3.0, BUN 4, BG 128, Alb 2.1, WBC 24.1. Recommend initiate TPN at low rate 60mls/hr. d/t risk of refeeding syndrome. Goal rate of 75mls/hr. Also recommend potassium supplementation. RD to continue to monitor. Please notify as additional nutrition concerns arise. Thank you. Addendum: 02/03/20 at [address] ADDENDUM RECOMMENDATIONS FAXED TO ([id number]) RN NOTIFIED.
[2020-02-03] MEDS: ONDANSETRON HCL 4 MG/2 ML VIAL IV PRN (18:43)
[2020-02-03] MEDS: MORPHINE SULFATE 2 MG/ML 1ML SYG IVP PRN (18:43)
[2020-02-03 20:00] VITALS: BP 95/56
[2020-02-03] MEDS ORDERED: ACETAMINOPHEN ELIXIR 650 MG/20.3 ML UDCUP ONE (20:45)
[2020-02-03] MEDS: GUAIFENESIN-DM 200/20 MG 10 ML PO PRN (20:45)
[2020-02-03] MEDS ORDERED: ACETAMINOPHEN ELIXIR 160 MG/5ML UDCUP PO PRN (20:45)
[2020-02-03 23:09] VITALS: BP 82/51
[2020-02-04] VITALS (25 sets, daily range): BP systolic 83–152; BP diastolic 55–94
--- NOTE | 2020-02-04 00:15 | NUR ---
HYPOTENSION. PATIENT WITH CONTINUED EPISODES OF HYPOTENSION. ON-CALL JANNET Obando NP CONTACTED INFORMED OF TODAY'S BP FINDINGS. ORDERS GIVEN TO 1) GIVE 500 ML BOLUS OF NORMAL SALINE X1 NOW. ORDERS READ BACK TO JANNET Obando NP AND TRANSCRIBED. PATIENT CURRENTLY IN BED IN STABLE CONDITION, EASILY AROUSED, ABLE TO MAKE NEEDS KNOWN. NO C/O PAIN OR DISCOMFORT AT THIS TIME. CALL DEVICE WITHIN REACH WILL CONT. TO MONITOR.
[2020-02-04] MEDS ORDERED: SODIUM CHLORIDE 0.9% 500ML 500 ML IV ONE (00:30)
[2020-02-04] MEDS: SODIUM CHLORIDE 0.9% 1000ML 1,000 ML IV SCH ×2 (01:51→22:11)
[2020-02-04] MEDS: GUAIFENESIN-DM 200/20 MG 10 ML PO PRN ×3 (02:00→23:54)
[2020-02-04] MEDS: ACETAMINOPHEN ELIXIR 650 MG/20.3 ML UDCUP PO PRN (02:09)
[2020-02-04 04:44] LABS: BASOPHILS % (AUTO) 0.3 % (0.0-5.0); HEMATOCRIT 27.8 % (36-48); LYMPHOCYTES % (AUTO) 9.5 % (21.0-51.0); MEAN CORPUSCULAR HEMOGLOBIN 28.9 pg (27.0-33.0); MEAN CORPUSCULAR HGB CONC 31.7 g/dL (32.0-36.0); MEAN CORPUSCULAR VOLUME 91.4 fL (79-99); NEUTROPHILS % (AUTO) 80.1 % (40.0-77.0); PLATELET COUNT (AUTO) 379 K/uL (130-400); RED BLOOD CELL COUNT(AUTO) 3.04 MIL/uL (4.00-5.50); RED CELL DISTRIBUTION WIDTH 14.1 % (11.0-15.5); WHITE BLOOD COUNT (AUTO) 23.9 K/uL (4.8-10.8)
[2020-02-04 05:29] LABS: ALBUMIN 1.9 g/dL (3.5-5.0); BILIRUBIN,TOTAL 0.4 mg/dL (0.2-1.0); CREATININE 0.6 mg/dL (0.5-1.5); MAGNESIUM 2.4 mg/dL (1.80-2.40); POTASSIUM 3.7 mmol/L (3.5-5.1); TOTAL PROTEIN, SERUM 6.8 g/dL (6.0-8.3)
[2020-02-04] MEDS: ACETYLCYSTEINE 20% 200MG/ML 4ML VIAL IH SCH ×3 (06:16→23:34)
[2020-02-04] MEDS: ALBUTEROL SULFATE 0.083% 2.5 MG/3 ML INH IH SCH ×4 (06:16→23:34)
[2020-02-04] MEDS: ZOSYN 3.375GM+NS 50ML 50 ML IV SCH ×3 (06:48→23:15)
[2020-02-04] MEDS: INSULIN HUMULIN R 100 UNIT/ML 3ML SQ SCH ×4 (06:49→21:00)
[2020-02-04] MEDS: FAMOTIDINE/PF 20 MG/2 ML VIAL IV SCH ×2 (09:00→21:05)
[2020-02-04] MEDS: ZINC SULFATE 220 CAPSULE PO SCH (09:00)
[2020-02-04] MEDS: ENOXAPARIN SODIUM 40 MG/0.4 ML SYRINGE SQ SCH (09:00)
[2020-02-04] MEDS: ASCORBIC ACID 500 MG TAB PO SCH (09:00)
--- NOTE | 2020-02-04 10:18 | NUR ---
PATIENT TAKEN FOR BRONCHOSCOPY PROCEDURE
[2020-02-04] MEDS ORDERED: PROPOFOL 10 MG/ML 20ML VIAL IV ONE (11:26)
[2020-02-04] MEDS ORDERED: MIDAZOLAM HCL 1 MG/ML 2ML VIAL ONE (11:26)
[2020-02-04] MEDS ORDERED: FENTANYL CITRATE PF 50 MCG/1 ML 2ML VIAL ONE (11:26)
[2020-02-04] MEDS ORDERED: SUCCINYLCHOLINE CHLORIDE 20 MG/ML 10 ML VIAL ONE (11:27)
[2020-02-04] MEDS ORDERED: BENZOCAINE 20% 57 GM SPRAY ONE (11:31)
[2020-02-04] MEDS ORDERED: LIDOCAINE HCL/PF 4% 40 MG/1 ML 5ML AMP IH SCH (11:45)
[2020-02-04] MEDS ORDERED: PHENYLEPHRINE HCL 10 MG/ML 1ML VIAL IV ONE (12:14)
[2020-02-04] MEDS ORDERED: MEPERIDINE-PF 25 MG/ML SYG ONE ×2 (12:35→13:02)
--- NOTE | 2020-02-04 14:13 | NUR ---
REPORT FROM JAMIN KIMBALLATOMIC PROCESS ENGINEER ROOM S/P BRONCHOSCOPY. PATIENT HAD EVENTFUL POST OP PERIOD WITH DECREASED SATS TO 85% AND HAD TO BE PLACED ON 100% NRB MASK, WAS GIVEN DEMERAL 25MG X 2 IN RECOVERY. BACK TO ROOM W/ 100% NRB MASK 96% NRB 20RR, 119/64 85HR, PATIENT STILL VERY GROGGY BUT AROUSABLE AND COUGHS UP BLOODY TINGED SPUTUM.
--- NOTE | 2020-02-04 17:30 | NUR ---
DR GONZÁLES AT BEDSIDE AND STATED IF PATIENT BECOME HYPOTENSIVE PERSISTENTLY 80s OR BELOW CAN MOVE TO ICU FOR MONITORING.
[2020-02-04] MEDS ORDERED: BENZOCAINE/MENTH/CETYLPYRD CL 1 EACH LOZENGE MM PRN (17:45)
--- NOTE | 2020-02-04 20:31 | NUR ---
CONTACTED RE PN FROM DR. DANIELLA PERRIN PEG TUBE. PT WILL EVENTUALLY NEED PEG TUBE FOR NUTRITION, TEXT TO DR. ALEMAN , RESPONSE- DR. TATE DECLINED, TOO HIGH RISK, ASKING MD PLEASE RE CONSULT ANOTHER GI FOR POSS PEG? CM TO FOLLOW UP, TO REVIEW IN AM. Addendum: 02/04/20 at 2034 by MAKAYLA LAY RN CM Amended: Links added.
[2020-02-05] MEDS: ACETAMINOPHEN ELIXIR 650 MG/20.3 ML UDCUP PO PRN ×2 (02:44→21:12)
[2020-02-05 03:38] VITALS: BP 117/72
[2020-02-05] MEDS: INSULIN HUMULIN R 100 UNIT/ML 3ML SQ SCH ×4 (06:09→21:00)
[2020-02-05] MEDS: ZOSYN 3.375GM+NS 50ML 50 ML IV SCH ×3 (06:17→23:37)
[2020-02-05] MEDS: BENZONATATE 100 MG CAPSULE PO PRN (06:25)
[2020-02-05 06:28] LABS: BASOPHILS % (AUTO) 0.3 % (0.0-5.0); EOSINOPHILS % (AUTO) 3.7 % (0.0-8.0); HEMATOCRIT 28.8 % (36-48); LYMPHOCYTES % (AUTO) 8.1 % (21.0-51.0); MEAN CORPUSCULAR HEMOGLOBIN 29.2 pg (27.0-33.0); MEAN CORPUSCULAR HGB CONC 31.6 g/dL (32.0-36.0); MEAN CORPUSCULAR VOLUME 92.3 fL (79-99); MONOCYTES % (AUTO) 3.9 % (3.0-13.0); NEUTROPHILS % (AUTO) 82.9 % (40.0-77.0); PLATELET COUNT (AUTO) 420 K/uL (130-400); RED BLOOD CELL COUNT(AUTO) 3.12 MIL/uL (4.00-5.50); RED CELL DISTRIBUTION WIDTH 14.1 % (11.0-15.5); WHITE BLOOD COUNT (AUTO) 28.5 K/uL (4.8-10.8)
[2020-02-05] MEDS: ALBUTEROL SULFATE 0.083% 2.5 MG/3 ML INH IH SCH ×3 (06:33→22:28)
[2020-02-05] MEDS: ACETYLCYSTEINE 20% 200MG/ML 4ML VIAL IH SCH ×3 (06:34→22:28)
[2020-02-05 06:40] LABS: CREATININE 0.5 mg/dL (0.5-1.5); POTASSIUM 3.4 mmol/L (3.5-5.1)
[2020-02-05 08:00] VITALS: BP 113/61
[2020-02-05] MEDS ORDERED: POTASSIUM CHLORIDE 10% ELIXIR 20 MEQ/15 ML UDCUP PO SCH (08:30)
[2020-02-05] MEDS: FAMOTIDINE/PF 20 MG/2 ML VIAL IV SCH ×2 (10:21→21:12)
[2020-02-05] MEDS: ASCORBIC ACID 500 MG TAB PO SCH (10:23)
[2020-02-05] MEDS: ZINC SULFATE 220 CAPSULE PO SCH (10:23)
[2020-02-05] MEDS: ENOXAPARIN SODIUM 40 MG/0.4 ML SYRINGE SQ SCH (10:24)
[2020-02-05] MEDS: GUAIFENESIN-DM 200/20 MG 10 ML PO PRN ×3 (10:32→21:11)
[2020-02-05 12:00] VITALS: BP 165/94
[2020-02-05 16:00] VITALS: BP 113/74
[2020-02-05] MEDS: SODIUM CHLORIDE 0.9% 1000ML 1,000 ML IV SCH (18:11)
[2020-02-05] MEDS: ONDANSETRON HCL 4 MG/2 ML VIAL IV PRN (19:31)
[2020-02-05 20:53] VITALS: BP 131/80
[2020-02-06] VITALS (16 sets, daily range): BP systolic 77–148; BP diastolic 43–112
[2020-02-06] MEDS: GUAIFENESIN-DM 200/20 MG 10 ML PO PRN ×2 (01:16→04:59)
[2020-02-06] MEDS: ACETAMINOPHEN ELIXIR 650 MG/20.3 ML UDCUP PO PRN ×3 (01:20→09:36)
[2020-02-06] MEDS: ZOSYN 3.375GM+NS 50ML 50 ML IV SCH ×3 (06:06→22:42)
[2020-02-06 06:35] LABS: MAGNESIUM 2.1 mg/dL (1.80-2.40); POTASSIUM 3.4 mmol/L (3.5-5.1)
[2020-02-06] MEDS: ALBUTEROL SULFATE 0.083% 2.5 MG/3 ML INH IH SCH ×3 (06:36→22:14)
[2020-02-06] MEDS: ACETYLCYSTEINE 20% 200MG/ML 4ML VIAL IH SCH (06:40)
[2020-02-06] MEDS: INSULIN HUMULIN R 100 UNIT/ML 3ML SQ SCH ×3 (07:30→16:30)
[2020-02-06] MEDS ORDERED: POTASSIUM CHLORIDE 10% ELIXIR 20 MEQ/15 ML UDCUP PO SCH (08:45)
[2020-02-06] MEDS: ZINC SULFATE 220 CAPSULE PO SCH (09:26)
[2020-02-06] MEDS: ASCORBIC ACID 500 MG TAB PO SCH (09:26)
[2020-02-06] MEDS: ENOXAPARIN SODIUM 40 MG/0.4 ML SYRINGE SQ SCH (09:27)
[2020-02-06] MEDS: FAMOTIDINE/PF 20 MG/2 ML VIAL IV SCH ×2 (09:27→20:29)
[2020-02-06 12:31] LABS: ABG BASE EXCESS 1.8 mmol/L (-2.0-3.0); ABG HCO3 26.6 mmol/L (21.0-28.0); ABG OXYGEN SATURATION 96.5 % (95.0-99.0); ABG PCO2 43 mmHg (32-45)
--- NOTE | 2020-02-06 13:15 | NUR ---
Pt was transferred from 4th floor room 13 to day patient. pod 1d
--- NOTE | 2020-02-06 13:22 | NUR ---
REPORT REPORT GIVEN TO REYNALDO IN ICU AT APPROX 1300 HOURS REFERENCE PATIENT TRANSFERRED
--- NOTE | 2020-02-06 13:30 | NUR ---
Spoke with inspector wire rope Dr Fournier. Discussed pts increased work of breathing despite venturi mask therapy. Requested for possible steroid therapy. MD stated steroids won't be of help to patient. Ordered continuation of oxygen therapy and BIPAP PRN.
[2020-02-06] MEDS: SODIUM CHLORIDE 0.9% 1000ML 1,000 ML IV SCH (14:11)
[2020-02-06] MEDS: QUETIAPINE FUMARATE 25 MG TAB PO SCH ×2 (14:36→20:29)
--- NOTE | 2020-02-06 16:26 | NUR ---
Communicated with Dr Fournier via telephone about declining/worsening status of patient. Informed MD of patient's worsening shortness of breath and increased heart rate. Awaiting orders from MD.
[2020-02-06] MEDS ORDERED: PROPOFOL 1000 MG/100 ML 100 ML IV ONE (16:38)
[2020-02-06] MEDS ORDERED: NOREPINEPHRINE 4MG/NS 250ML 250 ML IV ONE (16:51)
[2020-02-06] MEDS ORDERED: MIDAZOLAM 100MG-0.9% NS 100ML 100ML BAG IV ONE (17:00)
[2020-02-06] MEDS ORDERED: FENTANYL CITRATE PF 0.05 MG/ML 1,000 MCG in SODIUM CHLORIDE 0.9% 100 ML IVPB SCH (17:00)
[2020-02-06] MEDS ORDERED: PROPOFOL 1000 MG/100 ML 100 ML IV SCH (17:00)
--- NOTE | 2020-02-06 17:17 | NUR ---
INTUBATION 1645 100MG PROPOFOL 1647 150MG SUCCINYCHOLINE 1650 INTUBATION BY ANESTHESIA. LEVOPHED STARTED FOR BP CONTROL
[2020-02-06 17:33] LABS: INR 1.16 (0.85-1.15); PARTIAL THROMBOPLASTIN TIME 36.6 SEC (26.3-35.5); PROTHROMBIN TIME 12.5 SEC (9.6-11.6)
[2020-02-06 17:34] LABS: ABG BASE EXCESS -1.6 mmol/L (-2.0-3.0); ABG HCO3 27.2 mmol/L (21.0-28.0); ABG OXYGEN SATURATION 94.7 % (95.0-99.0); ABG PCO2 63 mmHg (32-45)
[2020-02-06] MEDS: NOREPINEPHRINE 4MG/NS 250ML 250 ML IV SCH ×2 (17:39→20:39)
--- NOTE | 2020-02-06 19:10 | NUR ---
Received report from patient,s/p intubated ,on mechanical ventilation and sedated with Fentanyl and propofol,on Levophed for BP support.PICC Line procedure is in progress at this time.ABG result was already addressed by as per report.Patient is also for possible EGHD tomorrow as pre report and consent is already signed.
--- NOTE | 2020-02-06 21:07 | NUR ---
DIFFICULT PICC LINE PLACEMENT. LEFT BRACHIAL VEIN ACCESSED EASILY, BUT UNABLE TO ADVANCE TO SVC AFTER MULTIPLE MANEUVERS AND POSITION CHANGES. RIGHT BASILIC VEIN ACCESSED AND 6 FR 3 LUMEN PICC ADVANCED WITH VPS NAVIGATION DEVICE, BUT UNABLE TO OBTAIN BULLSEYE, SO CHEST XRAY ORDERED. STAT RADIOLOGIST READING STATES PICC TIP IN SVC. DR. OAKLEY OKAYED PICC USE. REHANA RUSH AWARE. PICC TRIMMED AT 44CM AND ADVANCED TO 36CM INTERNALLY AND 8CM EXTERNAL. BIOPATCH AND STAT ROLAND WITH STERILE DRESSING APPLIED. BOTH PICC ATTEMPTS DONE USING ASEPTIC TECHNIQUE. ALL 3 LUMENS HAVE GOOD BLOOD RETURN, FLUSHED EASILY AND CLAMPED.
--- NOTE | 2020-02-06 21:13 | NUR ---
rounded here,updated with patient condition,meds and V/S.Received new order to insewrt moreira,give 1 L/NS Bolus and keep patient on 1/2 NS @75ml/hr and PICC line is okay to be used.Will carry out order.
[2020-02-06] MEDS ORDERED: SODIUM CHLORIDE 0.9% 1000ML 1,000 ML IV SCH (21:15)
[2020-02-06] MEDS: 1/2 NORMAL SALINE 1,000 ML IV SCH (22:43)
[2020-02-07] VITALS (24 sets, daily range): BP systolic 95–111; BP diastolic 56–70
[2020-02-07] MEDS: NOREPINEPHRINE 4MG/NS 250ML 250 ML IV SCH ×4 (00:24→12:16)
[2020-02-07] MEDS: ZOSYN 3.375GM+NS 50ML 50 ML IV SCH ×3 (05:33→20:38)
[2020-02-07] MEDS: INSULIN HUMULIN R 100 UNIT/ML 3ML SQ SCH ×5 (06:00→23:52)
[2020-02-07] MEDS: ALBUTEROL SULFATE 0.083% 2.5 MG/3 ML INH IH SCH (06:08)
[2020-02-07 06:36] LABS: BASOPHILS % (AUTO) 0.4 % (0.0-5.0); EOSINOPHILS % (AUTO) 1.6 % (0.0-8.0); HEMATOCRIT 31.1 % (36-48); LYMPHOCYTES % (AUTO) 9.1 % (21.0-51.0); MEAN CORPUSCULAR HEMOGLOBIN 28.8 pg (27.0-33.0); MEAN CORPUSCULAR HGB CONC 30.9 g/dL (32.0-36.0); MEAN CORPUSCULAR VOLUME 93.4 fL (79-99); MONOCYTES % (AUTO) 4.3 % (3.0-13.0); NEUTROPHILS % (AUTO) 82.9 % (40.0-77.0); PLATELET COUNT (AUTO) 534 K/uL (130-400); RED BLOOD CELL COUNT(AUTO) 3.33 MIL/uL (4.00-5.50); RED CELL DISTRIBUTION WIDTH 14.6 % (11.0-15.5)
[2020-02-07 06:53] LABS: CREATININE 0.5 mg/dL (0.5-1.5); MAGNESIUM 2.1 mg/dL (1.80-2.40); POTASSIUM 3.8 mmol/L (3.5-5.1)
[2020-02-07 07:17] LABS: WHITE BLOOD COUNT (AUTO) 44.6 K/uL (4.8-10.8)
--- NOTE | 2020-02-07 08:13 | NUR ---
Critical lab result notification, WBCs, Drs. Griffiths and Vernon. Dr. Griffiths notified of WBC 44.6. Dr. Griffiths requested oncology be notified. Dr. Junior completions manager for Dr. Uriarte per their answering service. Dr. Junior paged.
[2020-02-07 08:33] LABS: BAND NEUTROPHILS % (MANUAL) 1 % (0-2); EOSINOPHILS % (MANUAL) 5 % (1-6); LYMPHOCYTES % (MANUAL) 6 % (22-44); MONOCYTES % (MANUAL) 4 % (2-9); SEGMENTED NEUTROPHILS % 84 % (40-70)
[2020-02-07 08:34] LABS: MAN.DIFF COMMENT-IMPRESSION MANUAL DIFFERENTIAL; PLATELET MORPHOLOGY COMMENT MARKED INCREASE
[2020-02-07] MEDS ORDERED: MIDAZOLAM 100MG-0.9% NS 100ML 100 ML IV ONE (08:41)
[2020-02-07] MEDS: FENTANYL 2500MCG+NS 250ML 250 ML IV SCH ×2 (08:48→21:41)
[2020-02-07] MEDS: FAMOTIDINE/PF 20 MG/2 ML VIAL IV SCH ×2 (08:48→20:38)
[2020-02-07] MEDS: ENOXAPARIN SODIUM 40 MG/0.4 ML SYRINGE SQ SCH (08:49)
[2020-02-07] MEDS: 1/2 NORMAL SALINE 1,000 ML IV SCH (08:49)
[2020-02-07] MEDS: QUETIAPINE FUMARATE 25 MG TAB PO SCH (09:00)
[2020-02-07] MEDS: ZINC SULFATE 220 CAPSULE PO SCH (09:00)
[2020-02-07] MEDS: ASCORBIC ACID 500 MG TAB PO SCH (09:00)
[2020-02-07] MEDS ORDERED: PROPOFOL 10 MG/ML 20ML VIAL IV ONE (11:27)
[2020-02-07] MEDS ORDERED: PHARMACY COMMUNICATION MISC SCH (12:15)
[2020-02-07] MEDS ORDERED: ALBUTEROL SULFATE 0.083% 2.5 MG/3 ML INH IH ONE (15:32)
[2020-02-07] MEDS ORDERED: FLUCONAZOLE 400 MG/NS 200 ML 200 ML IV SCH (15:45)
--- NOTE | 2020-02-07 23:30 | NUR ---
STOPPED IVF MARCELL ZULETA ,notified that patient is crackly and on IVF ,received order to stop IVF for now.
[2020-02-08] VITALS (29 sets, daily range): BP systolic 92–137; BP diastolic 56–77
[2020-02-08 03:31] LABS: ABG BASE EXCESS -1.5 mmol/L (-2.0-3.0); ABG HCO3 25.1 mmol/L (21.0-28.0); ABG OXYGEN SATURATION 93.9 % (95.0-99.0); ABG PCO2 49 mmHg (32-45)
[2020-02-08 03:48] LABS: HEMATOCRIT 32.7 % (36-48); MEAN CORPUSCULAR HEMOGLOBIN 29.1 pg (27.0-33.0); MEAN CORPUSCULAR HGB CONC 30.6 g/dL (32.0-36.0); MEAN CORPUSCULAR VOLUME 95.1 fL (79-99); PLATELET COUNT (AUTO) 464 K/uL (130-400); RED BLOOD CELL COUNT(AUTO) 3.44 MIL/uL (4.00-5.50); RED CELL DISTRIBUTION WIDTH 15.3 % (11.0-15.5)
[2020-02-08 03:53] LABS: WHITE BLOOD COUNT (AUTO) 38.7 K/uL (4.8-10.8)
[2020-02-08 04:10] LABS: ALBUMIN 1.7 g/dL (3.5-5.0); BILIRUBIN,TOTAL 0.4 mg/dL (0.2-1.0); CREATININE 0.6 mg/dL (0.5-1.5); PHOSPHORUS 2.7 mg/dL (2.5-4.9); POTASSIUM 3.7 mmol/L (3.5-5.1); TOTAL PROTEIN, SERUM 7.1 g/dL (6.0-8.3)
[2020-02-08] MEDS ORDERED: MIDAZOLAM 100MG-0.9% NS 100ML 100 ML IV ONE (04:35)
[2020-02-08] MEDS ORDERED: MIDAZOLAM 100MG-0.9% NS 100ML 100ML BAG IV ONE (04:45)
[2020-02-08 05:04] LABS: BAND NEUTROPHILS % (MANUAL) 2 % (0-2); EOSINOPHILS % (MANUAL) 2 % (1-6); LYMPHOCYTES % (MANUAL) 10 % (22-44); MAN.DIFF COMMENT-IMPRESSION MANUAL DIFFERENTIAL; MONOCYTES % (MANUAL) 2 % (2-9); SEGMENTED NEUTROPHILS % 84 % (40-70)
[2020-02-08 05:05] LABS: PLATELET MORPHOLOGY COMMENT INCREASED
[2020-02-08] MEDS: ZOSYN 3.375GM+NS 50ML 50 ML IV SCH ×3 (05:14→21:18)
[2020-02-08] MEDS: INSULIN HUMULIN R 100 UNIT/ML 3ML SQ SCH ×3 (05:25→18:00)
[2020-02-08] MEDS: ASCORBIC ACID 500 MG TAB PO SCH (07:25)
[2020-02-08] MEDS: ZINC SULFATE 220 CAPSULE PO SCH (07:25)
[2020-02-08] MEDS ORDERED: MIDAZOLAM 100MG-0.9% NS 100ML 100ML BAG IV SCH (07:30)
[2020-02-08] MEDS: FENTANYL 2500MCG+NS 250ML 250 ML IV SCH ×2 (07:44→21:34)
[2020-02-08] MEDS: FLUCONAZOLE 200 MG/NS 100 ML 100 ML IV SCH (07:45)
[2020-02-08] MEDS: FAMOTIDINE/PF 20 MG/2 ML VIAL IV SCH ×2 (07:45→21:18)
[2020-02-08] MEDS: ENOXAPARIN SODIUM 40 MG/0.4 ML SYRINGE SQ SCH (07:45)
[2020-02-08] MEDS: NOREPINEPHRINE BITARTRATE 32 MG in SODIUM CHLORIDE 0.9% 250 ML IV SCH (07:48)
--- NOTE | 2020-02-08 11:26 | NUR ---
FOLLOW UP COMPLETED. D/C SKILLED SPEECH THERAPY. Pt NPO AND INTUBATED AT THIS TIME. DISCHARGE FROM SKILLED SPEECH THERAPY AT THIS TIME. Addendum: 02/08/20 at 1131 by MARCIO MEDRANO, [facility] ST Amended: Links added.
--- NOTE | 2020-02-08 11:50 | NUR ---
SW attempted visit; pt. in procedure.
[2020-02-08] MEDS: ARTIFICAL TEARS SOL 15 ML OU SCH ×3 (13:07→23:59)
[2020-02-08] MEDS: 1/2 NORMAL SALINE 1,000 ML IV SCH ×2 (13:58→19:55)
--- NOTE | 2020-02-08 15:00 | NUR ---
RD FOLLOW UP - TUBE FEEDING RECOMMENDATIONS Recommend trickle feedings with Immune support, high protein/energy Pivot 1.5 @20mls for 24 hours. After 24hours recommend to advance as tolerated to goal rate of 40mls/hr. Recommend H2O flushes at 130mls H2O E0fiapo. Recommendations faxed to Day Patient Unit ([id number]), RN notified. NUTRITION NOTE: Pt with Obstuctive PNA. Pt intubated with mechanical ventilation. Pending PEG placement. Elevated WBC (38.7) with immune support tube feeding formula recommended. Pt with esophageal mass. RD to continue to monitor. Please notify as additional nutrition concerns arise. Thank you.
--- NOTE | 2020-02-08 15:59 | NUR ---
EGD and PEG placement done at bedside by Dr. Posadas, GI staff, this technical writer and editor and RT present. Pt. tolerated. See chart for vital signs before, during and after procedure. Addendum: 02/08/20 at 1602 by ADRIAN OSMAN RN above procedure done at [id number]/
--- NOTE | 2020-02-08 16:00 | NUR ---
SW revisited; pt's dtr Angie at bedside. Emotional support provided to dtr. who was weeping. Dtr. reported that prior to admission, pt. was residing with her and her family. Pt. also has a 30y son as well as a 16y son. Pt. was employed as a provider prior to admission. Dtr. reports a strong support system among family. Pt's sister is a Registered Veterinary Technician and dtr. reports family has spiritual support as well. Pt's dtr. verbalized an understanding to pt's condition and prognosis. SW provided information on GIP and Hospice, comfort care. Dtr.'s questions answered and she stated that she will speak w/family before decision is made. Dtr. provided with this worker's number for any further questions or assistance. KRISTIN will continue to follow. Addendum: 02/08/20 at 1741 by RACHID SABILLON SS Amended: Links added.
[2020-02-09] VITALS (22 sets, daily range): BP systolic 113–125; BP diastolic 51–78
[2020-02-09] MEDS: MIDAZOLAM 100MG-0.9% NS 100ML 100 ML IV SCH (00:39)
[2020-02-09] MEDS: INSULIN HUMULIN R 100 UNIT/ML 3ML SQ SCH ×3 (06:00→12:00)
[2020-02-09 06:28] LABS: ALBUMIN 1.7 g/dL (3.5-5.0); BILIRUBIN,TOTAL 0.4 mg/dL (0.2-1.0); CREATININE 0.6 mg/dL (0.5-1.5); POTASSIUM 3.7 mmol/L (3.5-5.1); TOTAL PROTEIN, SERUM 7.2 g/dL (6.0-8.3)
[2020-02-09] MEDS: ZOSYN 3.375GM+NS 50ML 50 ML IV SCH ×3 (07:07→22:08)
[2020-02-09] MEDS: ARTIFICAL TEARS SOL 15 ML OU SCH ×4 (07:08→23:35)
[2020-02-09] MEDS: ASCORBIC ACID 500 MG TAB PO SCH (09:59)
[2020-02-09] MEDS: ZINC SULFATE 220 CAPSULE PO SCH (09:59)
[2020-02-09] MEDS: FLUCONAZOLE 200 MG/NS 100 ML 100 ML IV SCH (09:59)
[2020-02-09] MEDS: FAMOTIDINE/PF 20 MG/2 ML VIAL IV SCH (09:59)
[2020-02-09] MEDS: ENOXAPARIN SODIUM 40 MG/0.4 ML SYRINGE SQ SCH (10:00)
[2020-02-09] MEDS: LANSOPRAZOLE 15 MG SOLU TAB GT SCH (10:04)
--- NOTE | 2020-02-09 13:30 | NUR ---
Rounds to unit; spoke w/primary nurse who reports has not heard from pt's dtr. as of this time. SW remains available to dtr/family for assistance.
[2020-02-09] MEDS: 1/2 NORMAL SALINE 1,000 ML IV SCH (14:43)
--- NOTE | 2020-02-09 14:50 | NUR ---
Telephone call to dtr. Angie, informed of request by this worker to speak with pt's spouse to obtain verbal consent for her to make medical decisions. Angie visiting with her step-father and SW placed call on speaker w/primary nurse Keith present. This worker spoke with Duncan Alvaro about dtr. making medical decisions as they are but not . Mr. John verbalized his wishes for Angie to make medical decisions for her mother and provided his contact tel#[phone]. Mr. John requested permission to visit pt.; this worker to request permission from assisted living housekeeper. Mr. John verbalized an understanding.
--- NOTE | 2020-02-09 15:20 | NUR ---
Permission granted by senior data warehouse architect Char Lehman for pt's spouse to visit w/pt.; security notified. SW telephoned . Duncan John to inform him of allowed visitation; he stated will visit within the hour. KRISTIN also notified Angie/pt's dtr of visitation granted for her step dad. Kieth/RN made aware of above.
[2020-02-09] MEDS: FENTANYL 2500MCG+NS 250ML 250 ML IV SCH (23:37)
[2020-02-10] VITALS (28 sets, daily range): BP systolic 101–142; BP diastolic 56–79
--- NOTE | 2020-02-10 00:05 | NUR ---
HIGH GASTRIC RESIDUAL NOTED AND NO BOWEL SOUND WILL HOLD FEEDING AND REASSESS.
[2020-02-10 04:53] LABS: ALBUMIN 1.6 g/dL (3.5-5.0); BILIRUBIN,TOTAL 0.2 mg/dL (0.2-1.0); CREATININE 0.6 mg/dL (0.5-1.5); POTASSIUM 3.7 mmol/L (3.5-5.1); TOTAL PROTEIN, SERUM 7.1 g/dL (6.0-8.3)
[2020-02-10 05:50] LABS: ABG BASE EXCESS 3.2 mmol/L (-2.0-3.0); ABG HCO3 32.6 mmol/L (21.0-28.0); ABG OXYGEN SATURATION 87.7 % (95.0-99.0); ABG PCO2 73 mmHg (32-45)
[2020-02-10] MEDS: INSULIN HUMULIN R 100 UNIT/ML 3ML SQ SCH ×3 (06:00→11:46)
[2020-02-10] MEDS: ARTIFICAL TEARS SOL 15 ML OU SCH ×2 (06:06→11:40)
[2020-02-10] MEDS: ZOSYN 3.375GM+NS 50ML 50 ML IV SCH ×3 (06:07→21:05)
[2020-02-10 06:15] LABS: BASOPHILS % (AUTO) 0.4 % (0.0-5.0); EOSINOPHILS % (AUTO) 3.5 % (0.0-8.0); HEMATOCRIT 30.7 % (36-48); LYMPHOCYTES % (AUTO) 8.1 % (21.0-51.0); MEAN CORPUSCULAR HEMOGLOBIN 28.8 pg (27.0-33.0); MEAN CORPUSCULAR HGB CONC 29.6 g/dL (32.0-36.0); MEAN CORPUSCULAR VOLUME 97.2 fL (79-99); MONOCYTES % (AUTO) 3.9 % (3.0-13.0); PLATELET COUNT (AUTO) 373 K/uL (130-400); RED BLOOD CELL COUNT(AUTO) 3.16 MIL/uL (4.00-5.50); RED CELL DISTRIBUTION WIDTH 15.6 % (11.0-15.5)
[2020-02-10 06:23] LABS: WHITE BLOOD COUNT (AUTO) 32.4 K/uL (4.8-10.8)
--- NOTE | 2020-02-10 06:44 | NUR ---
RESIDUAL STILL HIGH, MD AWARE WILL CONTINUE TO HOLD.
[2020-02-10 07:23] LABS: LYMPHOCYTES % (MANUAL) 4 % (22-44); MAN.DIFF COMMENT-IMPRESSION MANUAL DIFFERENTIAL; MONOCYTES % (MANUAL) 2 % (2-9); PLATELET MORPHOLOGY COMMENT ADEQUATE; SEGMENTED NEUTROPHILS % 94 % (40-70)
[2020-02-10] MEDS: ASCORBIC ACID 500 MG TAB PO SCH (08:29)
[2020-02-10] MEDS: ZINC SULFATE 220 CAPSULE PO SCH (08:29)
[2020-02-10] MEDS: FLUCONAZOLE 200 MG/NS 100 ML 100 ML IV SCH (08:29)
[2020-02-10] MEDS: ENOXAPARIN SODIUM 40 MG/0.4 ML SYRINGE SQ SCH (08:31)
[2020-02-10] MEDS: LANSOPRAZOLE 15 MG SOLU TAB GT SCH (09:25)
--- NOTE | 2020-02-10 13:40 | NUR ---
Telephone call from pt's dtr. Angie requesting permission for her 16y brother to visit pt. as he is requesting to do so. Angie informed that this worker would speak w/data warehouse developer regarding request and would notify her of decision; Angie verbalized an understanding.
--- NOTE | 2020-02-10 14:08 | NUR ---
WITNESSED DNR WITNESSED DNR ORDER OVER THE PHONE, AUTHORIZED BY PT'S DAUGHTER (OTONIEL ROSS). CONTACTED BY DR. MCPHERSON. ORDER ENTERED BY DR. MCPHERSON. HARD COPY ON CHART.
--- NOTE | 2020-02-10 14:30 | NUR ---
Dtr. Adams granted permission to bring 16y brother Lakhwinder John to see their mother. SW contacted electrician helper powerhouse who deferred this worker to Director due to son's age. KRISTIN attempted to contact Rebeca/ unsuccessfully. KRISTIN notified by Neida/ Director that she spoke w/Rebeca/ who approved visit of 16y provided he is accompanied. KRISTIN notified pt's dtrArmando Adams who stated she will accompany her brother. KRISTIN notified security/Marilee with names of visitors approved to visit. KRISTIN also notified Paint And Table Edger/Holli and primary nurse Keith of approval by Rebeca/.
--- NOTE | 2020-02-10 15:29 | NUR ---
Sherrie colored urine noted with no odor. will continue to monitor as needed. Addendum: 02/10/20 at 1530 by Keith Ceron RN RN Amended: Links added.
--- NOTE | 2020-02-10 17:55 | NUR ---
3761-Notified Dr. Rodríguez in regards to patient's change in heart up to 130 beats per minute and 02 sats below 90 ranging from 80-90 while on 100% vent settings. Provider received message verbally via phone. will continue to monitor as needed.
--- NOTE | 2020-02-10 19:45 | NUR ---
PT family in at the bedside. Pt family wanting to speak with oncologist. Calls was placed to answering service by daysilft nurse.to answering service. Family wants to terminally wean after gathering relatives. Will continue to monitor the patient.
[2020-02-10] MEDS: FENTANYL 2500MCG+NS 250ML 250 ML IV SCH (20:58)
[2020-02-11] VITALS (15 sets, daily range): BP systolic 87–122; BP diastolic 53–79
[2020-02-11] MEDS ORDERED: 1/2 NORMAL SALINE 1,000 ML IV ONE ×2 (02:15→20:46)
[2020-02-11 03:41] LABS: BASOPHILS % (AUTO) 0.4 % (0.0-5.0); EOSINOPHILS % (AUTO) 1.1 % (0.0-8.0); HEMATOCRIT 30.8 % (36-48); LYMPHOCYTES % (AUTO) 6.1 % (21.0-51.0); MEAN CORPUSCULAR HEMOGLOBIN 28.5 pg (27.0-33.0); MEAN CORPUSCULAR HGB CONC 29.2 g/dL (32.0-36.0); MEAN CORPUSCULAR VOLUME 97.5 fL (79-99); MONOCYTES % (AUTO) 3.8 % (3.0-13.0); NEUTROPHILS % (AUTO) 87.6 % (40.0-77.0); PLATELET COUNT (AUTO) 331 K/uL (130-400); RED BLOOD CELL COUNT(AUTO) 3.16 MIL/uL (4.00-5.50); RED CELL DISTRIBUTION WIDTH 15.2 % (11.0-15.5); WHITE BLOOD COUNT (AUTO) 25.4 K/uL (4.8-10.8)
[2020-02-11] MEDS: MIDAZOLAM 100MG-0.9% NS 100ML 100 ML IV SCH (05:45)
[2020-02-11] MEDS: INSULIN HUMULIN R 100 UNIT/ML 3ML SQ SCH ×4 (05:47→17:01)
[2020-02-11] MEDS: ARTIFICAL TEARS SOL 15 ML OU SCH ×4 (05:47→18:16)
--- NOTE | 2020-02-11 08:40 | NUR ---
Pt's dtr. phoned this worker, reported visit last night by 16y went well. Dtr. stated that she was no longer seeking to speak w/oncologist as she was not going to put her mother through chemo/radiation. Dtr. verbalized that she will make decision for w/drawl/comfort care later and notify primary nurse.
[2020-02-11] MEDS: ZOSYN 3.375GM+NS 50ML 50 ML IV SCH ×3 (08:47→21:41)
[2020-02-11] MEDS: LANSOPRAZOLE 15 MG SOLU TAB GT SCH (09:00)
[2020-02-11] MEDS: FLUCONAZOLE 200 MG/NS 100 ML 100 ML IV SCH (09:51)
[2020-02-11] MEDS: ENOXAPARIN SODIUM 40 MG/0.4 ML SYRINGE SQ SCH (09:52)
[2020-02-11] MEDS: ASCORBIC ACID 500 MG TAB PO SCH (09:52)
[2020-02-11] MEDS: ZINC SULFATE 220 CAPSULE PO SCH (09:52)
[2020-02-11] MEDS: NOREPINEPHRINE BITARTRATE 32 MG in SODIUM CHLORIDE 0.9% 250 ML IV SCH (09:56)
[2020-02-11] MEDS: ACETAMINOPHEN ELIXIR 650 MG/20.3 ML UDCUP PO PRN (10:41)
[2020-02-11] MEDS: FENTANYL 2500MCG+NS 250ML 250 ML IV SCH (11:29)
[2020-02-12] VITALS (13 sets, daily range): BP systolic 84–120; BP diastolic 54–67
[2020-02-12] MEDS: ARTIFICAL TEARS SOL 15 ML OU SCH ×3 (00:29→11:50)
[2020-02-12 04:00] LABS: BASOPHILS % (AUTO) 0.1 % (0.0-5.0); EOSINOPHILS % (AUTO) 0.1 % (0.0-8.0); HEMATOCRIT 30.8 % (36-48); LYMPHOCYTES % (AUTO) 7.6 % (21.0-51.0); MEAN CORPUSCULAR HEMOGLOBIN 29.2 pg (27.0-33.0); MEAN CORPUSCULAR HGB CONC 29.9 g/dL (32.0-36.0); MEAN CORPUSCULAR VOLUME 97.8 fL (79-99); MONOCYTES % (AUTO) 4.1 % (3.0-13.0); NEUTROPHILS % (AUTO) 85.9 % (40.0-77.0); NUCLEATED RED BLOOD CELLS 0.2 % (0.0-0.19); PLATELET COUNT (AUTO) 293 K/uL (130-400); RED BLOOD CELL COUNT(AUTO) 3.15 MIL/uL (4.00-5.50); RED CELL DISTRIBUTION WIDTH 15.7 % (11.0-15.5)
[2020-02-12 04:52] LABS: WHITE BLOOD COUNT (AUTO) 42.9 K/uL (4.8-10.8)
[2020-02-12] MEDS: INSULIN HUMULIN R 100 UNIT/ML 3ML SQ SCH ×3 (06:00→11:57)
[2020-02-12] MEDS: ZOSYN 3.375GM+NS 50ML 50 ML IV SCH ×2 (06:17→13:45)
[2020-02-12] MEDS: FENTANYL 2500MCG+NS 250ML 250 ML IV SCH (07:58)
[2020-02-12] MEDS: LANSOPRAZOLE 15 MG SOLU TAB GT SCH (08:00)
[2020-02-12] MEDS: FLUCONAZOLE 200 MG/NS 100 ML 100 ML IV SCH (08:00)
[2020-02-12] MEDS: ASCORBIC ACID 500 MG TAB PO SCH (08:00)
[2020-02-12] MEDS: ZINC SULFATE 220 CAPSULE PO SCH (08:00)
[2020-02-12] MEDS: ENOXAPARIN SODIUM 40 MG/0.4 ML SYRINGE SQ SCH (08:01)
[2020-02-12] MEDS: SODIUM CHLORIDE 0.9% 1000ML 1,000 ML IV ONE ×2 (11:41→11:49)
[2020-02-12] MEDS ORDERED: 1/2 NORMAL SALINE 1,000 ML IV ONE (11:46)
--- NOTE | 2020-02-12 11:46 | NUR ---
SW rounded in unit and informed by primary nurse that family has chosen to withdraw.
[2020-02-12] MEDS: MIDAZOLAM 100MG-0.9% NS 100ML 100 ML IV SCH (13:40)
--- NOTE | 2020-02-12 16:20 | NUR ---
Withdrawal Family at the bedside. Papers (withdrawal of life support) was signed after speaking to Dr. Lagos. All orders DC, exept medications for comfort. Pt was extubated. 2L NC applied. Emotional support was given to family. Medications are titrated per comfort.
--- NOTE | 2020-02-12 17:15 | NUR ---
1635 assessment of , 02/12/20 1635 absence of apical pulse, pupils fixed and dilated with no corneal reflexes. pt DNR. refer to documentation of . Dominik bond HS
--- NOTE | 2020-02-12 17:52 | NUR ---
Spoke to Margaret from [facility]. Will send body to the morgue, but not releasing until contacted by eye center again. Char Lehman (pulp house supervisor) is aware. PICC line removed/intact/bleeding stopped.. Mayes removed. PEG tube still in place. Fentanyl and Versed wasted.
--- NOTE | 2020-02-12 18:19 | NUR ---
DATE AND TIME OF 02/12/2020 7781
== END 2020-02-12 16:35 | disposition expired | DRG 208 ==
LOC: EDH 15:06 → EDHIP 15:07 → 2DH 01-28 02:13 → 4BH 01-29 11:12 → 4CH 01-30 23:05 → DAHIP 02-06 14:04
PROVIDERS: ADMIT Internal Medicine; ATTEND Internal Medicine
PROC: 0BB78ZX Excision of Left Main Bronchus, Via Natural or Artificial Opening Endoscopic, Diagnostic (ICD-10-PCS; 2020-02-04)
PROC: 5A09357 Assistance with Respiratory Ventilation, Less than 24 Consecutive Hours, Continuous Positive Airway Pressure (ICD-10-PCS; principal; 2020-02-06)
PROC: 5A1945Z Respiratory Ventilation, 24-96 Consecutive Hours (ICD-10-PCS; 2020-02-06)
PROC: 0BH17EZ Insertion of Endotracheal Airway into Trachea, Via Natural or Artificial Opening (ICD-10-PCS; 2020-02-06)
PROC: 02HV33Z Insertion of Infusion Device into Superior Vena Cava, Percutaneous Approach (ICD-10-PCS; 2020-02-06)
PROC: 0DB28ZX Excision of Middle Esophagus, Via Natural or Artificial Opening Endoscopic, Diagnostic (ICD-10-PCS; 2020-02-08)
PROC: 0DH63UZ Insertion of Feeding Device into Stomach, Percutaneous Approach (ICD-10-PCS; 2020-02-08)
PROC: 5A1935Z Respiratory Ventilation, Less than 24 Consecutive Hours (ICD-10-PCS; 2020-02-09)
PROC: 5A1945Z Respiratory Ventilation, 24-96 Consecutive Hours (ICD-10-PCS; 2020-02-10)
DX: J18.9 Pneumonia, unspecified organism (principal); J96.01 Acute respiratory failure with hypoxia; E43 Unspecified severe protein-calorie malnutrition; J86.0 Pyothorax with fistula; C15.9 Malignant neoplasm of esophagus, unspecified; C34.00 Malignant neoplasm of unspecified main bronchus; C77.2 Secondary and unspecified malignant neoplasm of intra-abdominal lymph nodes; C78.6 Secondary malignant neoplasm of retroperitoneum and peritoneum; C78.7 Secondary malignant neoplasm of liver and intrahepatic bile duct; I31.3 Pericardial effusion (noninflammatory); J98.11 Atelectasis; K22.9 Disease of esophagus, unspecified; K22.8 Other specified diseases of esophagus; Z20.828 Contact with and (suspected) exposure to other viral communicable diseases; D64.9 Anemia, unspecified; E11.65 Type 2 diabetes mellitus with hyperglycemia; E27.8 Other specified disorders of adrenal gland; E66.9 Obesity, unspecified; E78.5 Hyperlipidemia, unspecified; E87.6 Hypokalemia; I10 Essential (primary) hypertension; K29.00 Acute gastritis without bleeding; D50.9 Iron deficiency anemia, unspecified; R13.10 Dysphagia, unspecified; K22.2 Esophageal obstruction; D49.0 Neoplasm of unspecified behavior of digestive system; R59.0 Localized enlarged lymph nodes; R13.14 Dysphagia, pharyngoesophageal phase; R62.7 Adult failure to thrive; Z66 Do not resuscitate; Z68.27 Body mass index [BMI] 27.0-27.9, adult; Z79.84 Long term (current) use of oral hypoglycemic drugs; Z87.891 Personal history of nicotine dependence; Z93.1 Gastrostomy status; Z83.3 Family history of diabetes mellitus; Z82.0 Family history of epilepsy and other diseases of the nervous system; Z82.49 Family history of ischemic heart disease and other diseases of the circulatory system
CPT/HCPCS: 31500; 31625; 31645; 36415; 36600; 43239; 43246; 70490; 71045; 71275; 74177; 76705; 80048; 80053; 80202; 81001; 82550; 82803; 82948; 83036; 83605; 83735; 83874; 83880; 84100; 84132; 84145; 84484; 85025; 85610; 85730; 86900; 86901; 87040; 87088; 87426; 87486; 87581; 87633; 87641; 87798; 87880; 92610; 93005; 93306; 94002; 94003; 94640; 94660; 94664; 94667; 94668; A4606; C1751; C1894; G0378; J0330; J0692; J0696; J1450; J1650; J2175; J2250; J2370; J2405; J2543; J2704; J3010; J3370; J3480; J3490; J7030; J7050; J7608; Q9967; U0003